=== PATIENT | male | born 1960 | race Hispanic/Latino ===

== ENCOUNTER → 2025-01-09 | Outpatient (REF) | payer BC | LOC: DX 09:45 → EDSEX 10:00 | PROVIDERS: ATTEND Internal Medicine Gastroenterology | DX: R10.32 Left lower quadrant pain (principal); K57.32 Diverticulitis of large intestine without perforation or abscess without bleeding; R19.4 Change in bowel habit; Z86.0100 Personal history of colon polyps, unspecified | CPT/HCPCS: 74280 ==